=== PATIENT | male | born 1945 | race Caucasian/White ===

== ENCOUNTER 2018-02-18 19:41 | Emergency (ER) | payer OTHER ==
[~2018-02-18] VITALS: Ht 175.2 cm; Wt 124.7 kg
--- NOTE | ~2018-02-18 | EKG ---
[place], [place] ELECTROCARDIOGRAM REPORT NAME: AIDA AGUDELO UNIT #: [id number] ROOM: DOCTOR: EPIPHANY DRAFT REPORT BIRTHDATE: [birth year] [facility] Test Date: 2018-02-18 Test Time: 20:16:12 Pat Name: AIDA AGUDELO Department: Room: Gender: Nps: : 1945 Requested By: GADIEL ODOM DNP Order Number: [id number] Reading MD: Suraj Tabares MD Measurements Intervals [place] Rate: 85 P: CT: QRS: 30 QRSD: 88 T: 204 QT: 408 QTc: 486 Interpretive Statements Atrial fibrillation Ventricular premature complex Nonspecific repol abnormality, lateral leads Electronically Signed On 02-20-2018 14:19:43 PST by Suraj Tabares MD CM:EKGRPT:ELECTROCARDIOGRAM REPORT 15 1419 GADIEL VAILANY DRAFT REPORT GADIEL ODOM DNP
[2018-02-18 20:17] LABS: BASO % 0.3 % (0.0-1.0); EOS # 0.3 10*3/uL (0.0-0.4); EOS % 2.5 % (1.0-4.0); HEMATOCRIT 42.4 % (42.0-52.0); HEMOGLOBIN 14.8 g/dl (14.0-18.0); LYMPH # 1.2 10*3/uL (1.3-4.4); LYMPH % 12.3 % (27.0-41.0); MEAN CELL VOLUME 98.1 fl (80.0-94.0); MEAN CORPUSCULAR HGB 34.3 pg (27.0-31.0); MEAN CORPUSCULAR HGB CONC 34.9 g/dl (33.0-37.0); MEAN PLATELET VOLUME 9.7 fl (9.6-12.3); MONO # 0.8 10*3/uL (0.1-1.0); MONO % 7.8 % (3.0-9.0); NEUT # 7.7 10*3/uL (2.3-7.9); NEUT % 76.8 % (47.0-73.0); PLATELET COUNT AUTOMATED 281 10*3/uL (130-400); RED BLOOD COUNT 4.32 10*6/uL (4.50-5.90); RED CELL DISTRI WIDTH 12.6 % (0-14.5)
[2018-02-18 21:13] LABS: ALBUMIN 3.2 gm/dl (3.1-4.5); ALKALINE PHOSPHATASE 73 U/L (45-117); BUN 11 mg/dl (7-24); CHLORIDE 100 mmol/L (98-107); CREATININE 1.32 mg/dL (0.70-1.30); POTASSIUM 3.3 mmol/L (3.5-5.1); SGOT/AST 13 IU/L (3-35); SGPT/ALT 16 U/L (12-78); SODIUM 139 mmol/L (136-145)
[2018-02-18 21:20] LABS: TROPONIN I < 0.015 ng/ml (<0.045)
[2018-02-18] MEDS ORDERED: DOXYCYCLINE100 M3 PO (22:53)
[2018-02-18] MEDS ORDERED: MUCINEX1200 M1 PO (22:53)
[2018-02-18] MEDS ORDERED: PREDNISONE50 MG PO (22:53)
== END 2018-02-18 23:26 | disposition home or self-care (01) ==
LOC: ED 19:41
PROVIDERS: Nurse Practitioner Family
DX: J20.9 Acute bronchitis, unspecified (principal); E87.6 Hypokalemia; I10 Essential (primary) hypertension; I48.91 Unspecified atrial fibrillation; E11.9 Type 2 diabetes mellitus without complications; Z87.891 Personal history of nicotine dependence

== ENCOUNTER 2025-03-27 16:07 | Emergency (ER) | payer OTHER ==
[~2025-03-27 16:07] MED LIST: DOXYCYCLINE100 M3 PO; MUCINEX1200 M1 PO; PREDNISONE50 MG PO
[2025-03-27] MEDS ORDERED: DERMABOND 1 EA APPL T ONE (18:34)
== END 2025-03-27 18:24 | disposition home or self-care (01) ==
LOC: ED 16:07
DX: S00.81XA Abrasion of other part of head, initial encounter (principal); I10 Essential (primary) hypertension; E11.9 Type 2 diabetes mellitus without complications; W10.9XXA Fall (on) (from) unspecified stairs and steps, initial encounter; Y93.89 Activity, other specified; Y92.89 Other specified places as the place of occurrence of the external cause; Y99.8 Other external cause status